=== PATIENT | female | born 1985 | race Caucasian/White ===

== ENCOUNTER 2017-02-06 09:20 | Outpatient (RCR) | payer OTHER | END 2017-04-13 | disposition home or self-care (01) | LOC: CARD 09:20 | PROVIDERS: ATTEND Internal Medicine Interventional Cardiology | DX: R00.2 Palpitations (principal); R06.02 Shortness of breath | CPT/HCPCS: 93270 ==

== ENCOUNTER → 2021-02-01 | Outpatient (CLI) | payer OTHER ==
--- NOTE | 2021-02-01 14:30 | Diagnostic Imaging Report ---
INDICATION: Mid back pain. COMPARISON: None. TECHNIQUE: Multiplanar, multisequence MR images of the thoracic spine were obtained without contrast. FINDINGS: Alignment is normal. There is no subluxation or fracture. No significant degeneration is seen. The vertebral body heights and disc spaces are well maintained. Posterior elements are unremarkable. The course and caliber of the thoracic cord is normal. There is no demyelination, inflammatory change, or mass. Paraspinous soft tissues are grossly unremarkable. IMPRESSION: Negative MRI of the thoracic spine. Dictated by: Dictated on workstation # [id number]
--- NOTE | 2021-02-01 15:37 | Diagnostic Imaging Report ---
PROCEDURE: MRI lumbar spine. TECHNIQUE: Multiplanar, multisequence MRI of the lumbar spine was performed without contrast. INDICATION: Mid spine and lower back pain. COMPARISON: None FINDINGS: For the purposes of this exam, last well-formed disc space is noted at the L5-S1 level. Partial sacralization of L5 is noted on the left. AP static alignment is maintained. There is mild levoscoliotic deformity of the lumbar spine epicentered at the L2-L3 level. This however may be related to patient positioning. There is no evidence of jumped facets. Vertebral body heights are preserved. There is no acute fracture. Marrow signal is normal throughout. Intervertebral disc heights of the lumbar spine are also fairly well maintained. Visualized portions of distal cord are unremarkable. Conus terminates at approximately the L1 level. No abnormal intrathecal filling defects are seen. Pre and paravertebral soft tissue structures are unremarkable. Axial images show the following: T12-L1: There is partially visualized extrusion of disc material into the anterior epidural space midline. This results in mild mass effect on the anterior thecal sac. There is no significant neural foraminal stenosis. L1-L2 through L5-S1: There is mild multilevel ligamentum flavum laxity and facet arthropathy, but no large disc bulge or focal protrusion. Additionally, there is no significant spinal canal or neuroforaminal stenosis. IMPRESSION: 1. No significant spinal canal or neuroforaminal stenosis of the lumbar spine. 2. Focal extrusion of disc material at T12-L1 level resulting in minimal mass effect on the thecal sac. 3. No acute fracture or dislocation. Dictated by: Dictated on workstation # [id number]
== END ==
LOC: RAD 13:19
PROVIDERS: ATTEND Physician Assistant
DX: M51.25 Other intervertebral disc displacement, thoracolumbar region (principal)
CPT/HCPCS: 72146; 72148